=== PATIENT | female | born 1960 | race Caucasian/White ===

== ENCOUNTER → 2017-12-24 | Outpatient (CLI) | payer OTHER ==
[~2017-12-24] MED LIST: TTR500 PO
--- NOTE | 2017-12-27 15:50 | MAMMOGRAPHY REPORT ---
BILATERAL DIGITAL SCREENING MAMMOGRAM TOMOSYNTHESIS WITH CAD: 12/24/2017 CLINICAL HISTORY: Routine screening. TECHNIQUE: Breast tomosynthesis in addition to standard 2D mammography was performed. Current study was also evaluated with a Computer Aided Detection (CAD) system. COMPARISON: Comparison is made to exams dated: 07/29/2016 mammogram, 07/25/2015 mammogram, 07/19/2014 m ammogram, 05/23/2013 mammogram, 05/11/2012 mammogram, and 06/05/2011 mammogram - [facility] nter. BREAST COMPOSITION: There are scattered areas of fibroglandular density in both breasts. FINDINGS: There is a small lobulated partially circumscribed and partially obscured 6 mm mass within the right 12:00 breast, for which ultrasound and possible additional spot compression tomosynthesis views are recommended for further evaluation. This may represent a cyst. The remainder of both breasts are stable compared to prior exams, without suspicious masses, calcific ations, or areas of architectural distortion noted. Other bilateral nodularity and scattered bilater al benign-appearing calcifications are not significantly changed. IMPRESSION: ACR BI-RADS CATEGORY 0: INCOMPLETE EVALUATION: NEED ADDITIONAL IMAGING EVALUATION Right 12:00 breast mass, for which additional imaging evaluation is recommended. The patient will be called to schedule an appointment. Approximately 10% of breast cancers are not detected with mammography. A negative mammographic report should not delay biopsy if a clinically suggestive mass is present. Carole Church M.D. ah/:12/24/2017 15:54:[address] Judge: Catrina DUFF(Gisselle)(M), [facility] letter sent: Addl Imaging 0 BI-RADS Code: ACR BI-RADS Category 0: Incomplete Evaluation: Need Additional Imaging Evaluation
== END | disposition home or self-care (01) ==
LOC: C.MAMM 11:41
PROVIDERS: ATTEND Family Medicine
DX: Z12.31 Encounter for screening mammogram for malignant neoplasm of breast (principal); N63.10 Unspecified lump in the right breast, unspecified quadrant

== ENCOUNTER → 2018-01-20 | Outpatient (CLI) | payer OTHER ==
--- NOTE | 2018-01-20 14:03 | MAMMOGRAPHY REPORT ---
UNILATERAL RIGHT DIGITAL DIAGNOSTIC MAMMOGRAM TOMOSYNTHESIS AND TARGETED RIGHT ULTRASOUND: 01/20/2018 CLINICAL HISTORY: 57 year old woman called back from screening mammography for a 6 mm partially circu mscribed mass in the 12:00 right breast. Family history of breast cancer. TECHNIQUE: Right CC and MLO tomosynthesis images were obtained after placement of a skin BB marker f or localization purposes. COMPARISON: Comparison is made to exams dated: 01/20/2018 ultrasound, 12/24/2017 mammogram, 07/29/2016 mammogram, 07/25/2015 mammogram, 07/19/2014 mammogram, and 05/23/2013 mammogram - [facility]. BREAST COMPOSITION: The tissue of the right breast is heterogeneously dense, which may obscure small masses. FINDINGS: First targeted ultrasound was performed in the right 11:00, 12:00 and 1:00 axes, to assess for the 6 mm partially circumscribed mammographic mass seen in the 12:00 axis on recent screening chris mogram dated 12/24/2017. In the 12:00 right breast, 10 cm from the nipple, there is a small, predomi nantly anechoic cyst with thin internal nonvascular septation, measuring 3.5 x 1.6 x 4.0 mm. No othe r discrete solid or cystic mass was seen in the 11:00, 12:00 or 1:00 axes of the right breast and the refore a skin BB was placed overlying the sonographic lesion identified cyst in the 12:00 axes and ri ght tomosynthesis mammography was performed to assess if the BB marker aligns with the mammographic f inding. On the right CC and MLO tomosynthesis images performed today, the 6 mm partially circumscribed mass i n the approximate 12:00 breast is no longer clearly identified. Currently, there is no evidence of a suspicious mass, asymmetry or architectural distortion. The sonographically identified cyst is not clearly seen mammographically. Given that the initial finding is less conspicuous versus no longer i dentified, this is probably benign, but short interval follow-up right diagnostic tomosynthesis mammo gram and possible ultrasound is recommended to ensure stability in 6 months. IMPRESSION: ACR-BI-RADS CATEGORY 3: PROBABLY BENIGN, TARGETED ULTRASOUND ACR-BI-RADS CATEGORY 3: PRO BABLY BENIGN 1. A tiny 4 mm cyst was identified in the 12:00 right breast, 10 cm from the nipple on ultrasound, b ut this did not definitely correlate with the 6 mm partially circumscribed mass seen on the 8 screening mammogram. Additional tomosynthesis mammogram views performed today demonstrates that ma ss is smaller versus not visualized any longer, suggesting benignity. However, given the general nod ularity of the patient's background parenchyma and possibility for slight differences in positioning with imaging, a short interval follow-up right diagnostic tomosynthesis mammogram and possible ultras ound is recommended to ensure stability in 6 month. These results and recommendations were discussed with the patient at the time of the exam. Approximately 10% of breast cancers are not detected with mammography. A negative mammographic report should not delay biopsy if a clinically suggestive mass is present. Marli Camacho M.D. ay/:01/20/2018 12:28:35 [employer] Operator: Catrina BUCK)(Gely), [facility] letter sent: Follow Up Recommended 3 BI-RADS Code: ACR-BI-RADS Category 3: Probably Benign Ultrasound BI-RADS: ACR-BI-RADS Category 3: Pr obably Benign
== END | disposition home or self-care (01) ==
LOC: C.MAMM 09:07
PROVIDERS: ATTEND Family Medicine
DX: R92.8 Other abnormal and inconclusive findings on diagnostic imaging of breast (principal); N63.10 Unspecified lump in the right breast, unspecified quadrant

== ENCOUNTER → 2018-07-21 | Outpatient (CLI) | payer OTHER ==
--- NOTE | 2018-07-28 07:01 | MAMMOGRAPHY REPORT ---
UNILATERAL RIGHT DIGITAL DIAGNOSTIC MAMMOGRAM TOMOSYNTHESIS WITH CAD: 07/21/2018 CLINICAL HISTORY: 6 Month Follow-up Right. TECHNIQUE: Breast tomosynthesis in addition to standard 2D mammography was performed. Current study w as also evaluated with a Computer Aided Detection (CAD) system. Right CC and MLO 2D and tomosynthesi s images were obtained. COMPARISON: Comparison is made to exams dated: 01/20/2018 mammogram, 12/24/2017 mammogram, 07/29/2016 m ammogram, 07/25/2015 mammogram, 07/19/2014 mammogram, and 05/23/2013 mammogram - [facility] enter. BREAST COMPOSITION: There are scattered areas of fibroglandular density in right breast. FINDINGS: The previously seen small partially circumscribed mass within the right 12:00 breast is decreased and no longer clearly evident, and is therefore consistent with a benign finding. The remainder of the right breast is stable compared to prior exams, without suspicious masses, calcifications, or areas o f architectural distortion noted. IMPRESSION: ACR BI-RADS CATEGORY 2: BENIGN There is no mammographic evidence of malignancy on the right breast. Return to annual mammogram scree miesha schedule is recommended, due December 2018. The patient has been verbally notified of the resul ts. Some breast cancers are not detected with mammography. A negative mammographic report should not missy y biopsy if a clinically suggestive mass is present. Carole Church M.D. /:07/21/2018 14:15:24 Veterinary Medicine Doctor: RT Ansley(R)(M), [facility] letter sent: Normal 1/2 BI-RADS Code: ACR BI-RADS Category 2: Benign
== END | disposition home or self-care (01) ==
LOC: C.MAMM 13:29
PROVIDERS: ATTEND Family Medicine
DX: Z09 Encounter for follow-up examination after completed treatment for conditions other than malignant neoplasm (principal)